=== PATIENT | male | born 1990 | race Caucasian/White ===

== ENCOUNTER 2020-01-04 16:11 | Emergency (ER) | payer OTHER ==
[~2020-01-04] VITALS: Ht 180.3 cm; Wt 83.0 kg
--- NOTE | 2020-01-04 16:31 | NUR ---
LILLIAM FRANCIS [facility]M SENIOR CARE FOR ALTERED MENTAL STATUS, VERBALLY NON RESPONSIVE X 1200. ACCORDING TO EMS PT BECAME ALTERED AFTER HIS PHYSICAL THERAPY. PT AAOX1, SLOW TO RESPOND & HAS BLANK STARE. RR EVEN & UNLABORED. PLACED ON MANAGER KNOWLEDGE, ST. PT SEEN & EVAL'D BY DR. BROWN. WILL CONT TO MONITOR.
[2020-01-04 16:56] LABS: BASOPHILS % (AUTO) 0.7 % (0.0-2.0); EOSINOPHILS % (AUTO) 1.4 % (0.0-6.0); HEMATOCRIT 42 % (39-51); HEMOGLOBIN 15.3 g/dL (13.5-17.5); LYMPHOCYTES # (AUTO) 1.9 /CMM (0.8-4.8); LYMPHOCYTES % (AUTO) 29.7 % (20.0-44.0); MEAN CORPUSCULAR HGB CONC 36 g/dl (31.0-36.0); MEAN CORPUSCULAR VOLUME 82 fL (80-96); MONOCYTES # (AUTO) 0.8 /CMM (0.1-1.30); NEUTROPHILS # (AUTO) 3.6 /CMM (1.8-8.9); NEUTROPHILS % (AUTO) 55.2 % (43.0-81.0); PLATELET COUNT (AUTO) 276 /CMM (150-450); RED BLOOD CELL COUNT(AUTO) 5.16 MIL/uL (4.5-6.0); WHITE BLOOD COUNT (AUTO) 6.4 K/uL (4.3-11.0)
--- NOTE | 2020-01-04 17:04 | NUR ---
PT TO CT VIA [facility].
[2020-01-04 17:07] LABS: ALANINE AMINOTRANSFERASE 897 U/L (12-78); ALBUMIN 4.5 g/dL (3.4-5.0); ALKALINE PHOSPHATASE 116 U/L (46-116); ASPARTATE AMINOTRANSFERASE 234 U/L (15-37); BILIRUBIN,DIRECT 0.5 mg/dL (0.0-0.2); BILIRUBIN,TOTAL 1.2 mg/dL (0.2-1.0); CALCIUM, SERUM 9.3 mg/dL (8.5-10.1); CARBON DIOXIDE 27 mmol/L (21-32); CHLORIDE 90 mmol/L (98-107); CREATININE 0.6 mg/dL (0.6-1.3); GLUCOSE 101 mg/dL (74-106); POTASSIUM 4.1 mmol/L (3.5-5.1); SODIUM SERUM 125 mmol/L (136-145); TOTAL PROTEIN, SERUM 8.2 g/dL (6.4-8.2); UREA NITROGEN, BLOOD 9 mg/dL (7-18)
[2020-01-04 17:10] LABS: SERUM AMMONIA 28 umol/L (11-32)
[2020-01-04 17:12] LABS: ACETAMINOPHEN < 10 ug/ml (10-30); ALCOHOL, BLOOD < 3 mg/dL (0-0); SALICYLATE < 2.8 mg/dL (2.8-20.0)
[2020-01-04] MEDS ORDERED: HYDR-4384 PO (17:20)
[2020-01-04] MEDS ORDERED: CLON0.2T PO (17:20)
[2020-01-04] MEDS ORDERED: LORA-259 PO (17:20)
[2020-01-04] MEDS ORDERED: SODI1TAB66 PO (17:20)
[2020-01-04] MEDS ORDERED: SENN-261 PO (17:20)
[2020-01-04] MEDS ORDERED: DOCU-141 PO (17:20)
[2020-01-04] MEDS ORDERED: POLY17PO4 PO (17:20)
[2020-01-04] MEDS ORDERED: PROP40TA7 PO (17:20)
[2020-01-04] MEDS ORDERED: MELA3TAB41 PO (17:20)
[2020-01-04] MEDS ORDERED: DIPH25CA51 PO (17:20)
[2020-01-04] MEDS ORDERED: HALO2TAB2 PO (17:20)
[2020-01-04 17:25] LABS: APPEARANCE,URINE Clear (CLEAR); BILIRUBIN,URINE Negative (NEGATIVE); BLOOD, URINE Negative Ery/uL (NEGATIVE); COLOR,URINE Yellow (YELLOW); KETONES,URINE Negative (NEGATIVE); LEUKOCYTE ESTERASE ,URINE Negative (NEGATIVE); NITRITE, URINE Negative (NEGATIVE); PROTEIN,URINE Negative (NEGATIVE); UGLUCOSE Negative (NEGATIVE); UROBILINOGEN,URINE >=8.0 EU/dL (0.2)
[2020-01-04 17:36] LABS: THYROID STIMULATING HORMONE 0.389 uIU/mL (0.358-3.74)
--- NOTE | 2020-01-04 18:25 | NUR ---
FAXED CLINICALS TO [facility].
[2020-01-04] MEDS ORDERED: hydrALAZINE HCL IV 20 MG VIAL ONE (18:53)
--- NOTE | 2020-01-04 18:57 | NUR ---
MEDICATED FOR ELEVATED BP PER ERMD ORDER, PT KARL WELL.
[2020-01-04] MEDS ORDERED: hydrALAZINE HCL IV 20 MG VIAL IV ONE (19:00)
--- NOTE | 2020-01-04 19:34 | NUR ---
TOOK OVER PT CARE. PT IS ABLE TO FOLLOW COMMANDS BUT DOES NOT SPEAK WHEN ASKED QUESTIONS. RR EVEN AND UNLABORED, SINUS TACH ON MONITOR AT 107, SAT 99% ROOM AIR, BP 159/98. WILL CONTINUE TO MONITOR.
--- NOTE | 2020-01-04 20:35 | NUR ---
TRANSFER INFORMATION: PT WILL BE TRANSFERRED TO [facility] ACCEPTING MD: DR. RAMOS/DR. CARD BED ASSIGNMENT: [id number] NUMBER FOR REPORT: [phone] EXT [address] [facility] ETA 45MIN
--- NOTE | 2020-01-04 20:51 | NUR ---
REPORT GIVEN TO GO [facility] FOR [facility]AC[facility]
[2020-01-04 22:04] VITALS: BP 143/87
--- NOTE | 2020-01-04 22:12 | NUR ---
SPOKE WITH DONALD FROM [facility], 30 MINUTES DELAYED ETA
--- NOTE | 2020-01-04 23:02 | NUR ---
REPORT GIVEN. PT TRANSFERED.
== END 2020-01-04 23:25 | disposition short-term general hospital (02) ==
LOC: ER 16:11
DX: R41.82 Altered mental status, unspecified (principal); G91.9 Hydrocephalus, unspecified; R00.0 Tachycardia, unspecified; G40.909 Epilepsy, unspecified, not intractable, without status epilepticus; E87.1 Hypo-osmolality and hyponatremia; Z98.890 Other specified postprocedural states; Z88.3 Allergy status to other anti-infective agents; Z88.8 Allergy status to other drugs, medicaments and biological substances; Z79.899 Other long term (current) drug therapy
CPT/HCPCS: 36415; 70450; 71045; 80048; 80076; 80305; 80307; 80329; 81001; 82140; 84443; 85025; 93005; 96374; 99285; G0480; J0360; 81000-TC

== ENCOUNTER 2020-01-16 22:56 | Emergency (ER) | payer OTHER ==
[~2020-01-16] VITALS: Ht 182.9 cm; Wt 76.7 kg
[~2020-01-16 22:56] MED LIST: CLON0.2T PO; DIPH25CA51 PO; DOCU-141 PO; HALO2TAB2 PO; HYDR-4384 PO; LORA-259 PO; MELA3TAB41 PO; POLY17PO4 PO; PROP40TA7 PO; SENN-261 PO; SODI1TAB66 PO
--- NOTE | 2020-01-16 22:58 | NUR ---
PT BIBPA FROM [place] TO [facility] FOR C/O INCREASED CONFUSION. PER REPORT PT VOMITED TWO DAYS AGO. PT AWAKE, FOLLOWS COMMANDS, BUT NONVERBAL, VSS, RESPIRATIONS EVEN AND UNLABORED ON RA W/ NAD NOTED. PT CONNECTED TO THE MONITOR AND POX
[2020-01-16] MEDS ORDERED: IV NS 0.9% 500 ML BAG IV ONE (23:30)
[2020-01-16 23:40] LABS: BASOPHILS # (AUTO) 0.1 /CMM (0.0-0.2); BASOPHILS % (AUTO) 0.8 % (0.0-2.0); EOSINOPHILS % (AUTO) 1.3 % (0.0-6.0); HEMATOCRIT 42 % (39-51); HEMOGLOBIN 14.8 g/dL (13.5-17.5); LYMPHOCYTES # (AUTO) 2.8 /CMM (0.8-4.8); LYMPHOCYTES % (AUTO) 25.1 % (20.0-44.0); MEAN CORPUSCULAR HGB CONC 35 g/dl (31.0-36.0); MEAN CORPUSCULAR VOLUME 84 fL (80-96); MONOCYTES # (AUTO) 1.2 /CMM (0.1-1.30); MONOCYTES % (AUTO) 10.4 % (2.0-12.0); NEUTROPHILS % (AUTO) 62.4 % (43.0-81.0); PLATELET COUNT (AUTO) 316 /CMM (150-450); RED BLOOD CELL COUNT(AUTO) 5.06 MIL/uL (4.5-6.0); WHITE BLOOD COUNT (AUTO) 11.3 K/uL (4.3-11.0)
[2020-01-16 23:56] LABS: CALCIUM, SERUM 9.1 mg/dL (8.5-10.1); CARBON DIOXIDE 27 mmol/L (21-32); CHLORIDE 101 mmol/L (98-107); CREATININE 0.7 mg/dL (0.6-1.3); GLUCOSE 114 mg/dL (74-106); POTASSIUM 3.9 mmol/L (3.5-5.1); SODIUM SERUM 137 mmol/L (136-145); UREA NITROGEN, BLOOD 15 mg/dL (7-18)
[2020-01-17 00:02] LABS: ALANINE AMINOTRANSFERASE 189 U/L (12-78); ALKALINE PHOSPHATASE 82 U/L (46-116); ASPARTATE AMINOTRANSFERASE 39 U/L (15-37); BILIRUBIN,DIRECT 0.3 mg/dL (0.0-0.2); TOTAL PROTEIN, SERUM 8.5 g/dL (6.4-8.2)
[2020-01-17 01:24] LABS: APPEARANCE,URINE Clear (CLEAR); BILIRUBIN,URINE SMALL (NEGATIVE); BLOOD, URINE Trace-intact Ery/uL (NEGATIVE); COLOR,URINE Yellow (YELLOW); KETONES,URINE Negative (NEGATIVE); LEUKOCYTE ESTERASE ,URINE Negative (NEGATIVE); NITRITE, URINE Negative (NEGATIVE); PROTEIN,URINE Negative (NEGATIVE); UGLUCOSE Negative (NEGATIVE)
[2020-01-17 01:37] LABS: BACTERIA,URINE None seen /HPF (None Seen); SQUAMOUS EPITHELIAL CELL,UR Few /HPF (None Seen); WBC,URINE 0-2 /HPF (0-3)
[2020-01-17 01:38] LABS: URINE AMORPHOUS URATE Few /HPF (None Seen)
--- NOTE | 2020-01-17 04:04 | NUR ---
PER DR KUO, PT IS OKAY TO GO HOME.
--- NOTE | 2020-01-17 04:07 | NUR ---
REPORT GIVEN TO TO BARRETT @ [facility].
--- NOTE | 2020-01-17 04:10 | NUR ---
PT AWAKE, CALM AT BEDSIDE. VSS. NO ACUTE DISTRESS NOTED. WILL CONTINUE TO MONITOR
--- NOTE | 2020-01-17 04:24 | NUR ---
ARRANGED TRANSPORT THROUGH [id number], WAITING FOR CALL BACK FOR ETA.
--- NOTE | 2020-01-17 04:36 | NUR ---
ETA FOR TRANSPORT [id number].
--- NOTE | 2020-01-17 05:19 | NUR ---
report given to ems. pt stable for transfer
[2020-01-17 05:21] VITALS: BP 157/98
== END 2020-01-17 05:21 ==
LOC: ER 22:59
DX: R41.82 Altered mental status, unspecified (principal); G40.909 Epilepsy, unspecified, not intractable, without status epilepticus; Z88.8 Allergy status to other drugs, medicaments and biological substances; Z88.3 Allergy status to other anti-infective agents; Z79.899 Other long term (current) drug therapy
CPT/HCPCS: 36415; 70450; 71045; 80048; 80076; 81001; 84484; 85025; 85730; 93005; 99285; J7040; 81000-TC